=== PATIENT | female | born 1995 | race Caucasian/White ===

== ENCOUNTER 2019-01-28 06:25 | Emergency (ER) | payer SELFPAY ==
[2019-01-28 07:21] LABS: T.VAGINALIS (WET MOUNT) NO TRICHOMONAS SEEN
[2019-01-28 07:24] LABS: WBCS (WET MOUNT) NO WBCS SEEN; YEAST (WET MOUNT) YEAST SEEN
[2019-01-28] MEDS ORDERED: FLUCONAZOLE 100 MG TABLET PO ONE (07:26)
[2019-01-28] MEDS ORDERED: CEFTRIAXONE INJ 250 MG VIAL IM ONE (07:26)
[2019-01-28] MEDS ORDERED: AZITHROMYCIN 250 MG TABLET PO ONE (07:26)
[2019-01-28] MEDS ORDERED: LIDOCAINE 1% INJ-PF (10 MG/ML) 30 ML SDV ONE (07:43)
--- NOTE | 2019-01-28 07:45 | ER Document Report ---
ED General - General Chief Complaint: Vaginal Pain Stated Complaint: VAGINAL PAIN Time Seen by Provider: 01/28/19 07:02 Notes: Patient is a 24-year-old female presents to the emergency department with vaginal irritation and discharge. Patient voices that she has had generalized vaginal itching for the last couple of days. Patient's denying any dysuria. 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 Patient states she has used [id number] 1 day Monistat without relief. TRAVEL OUTSIDE OF THE [place] IN LAST 30 DAYS: No - Related Data Allergies/Adverse Reactions: No Known Allergies Allergy (Verified 01/28/19 07:54) Past Medical History - General Information source: Patient - Social History Smoking Status: Never Smoker Family History: Reviewed & Not Pertinent Patient has suicidal ideation: No Patient has homicidal ideation: No Review of Systems - Review of Systems Constitutional: denies: Fever EENT: No symptoms reported Cardiovascular: No symptoms reported Respiratory: No symptoms reported Gastrointestinal: No symptoms reported Genitourinary: See HPI Female Genitourinary: See HPI Musculoskeletal: No symptoms reported Skin: No symptoms reported Hematologic/Lymphatic: No symptoms reported Neurological/Psychological: No symptoms reported Physical Exam - Vital signs Vitals: Temp Pulse Resp BP Pulse Ox 98.3 F 89 16 131/69 H 97 01/28/19 06:31 01/28/19 06:31 01/28/19 06:31 01/28/19 06:31 01/28/19 06:31 - Notes Notes: GENERAL: Alert, interacts well. No acute distress. HEAD: Normocephalic, atraumatic. EYES: Pupils equal, round, and reactive to light. Extraocular movements intact. ENT: Oral mucosa moist, tongue midline. NECK: Full range of motion. Supple. Trachea midline. LUNGS: Clear to auscultation bilaterally, no wheezes, rales, or rhonchi. No respiratory distress. HEART: Regular rate and rhythm. No murmur ABDOMEN: Soft, non-tender. Non-distended. Bowel sounds present in all 4 quadrants. EXTREMITIES: Moves all 4 extremities spontaneously. No edema, normal radial and dorsalis pedis pulses bilaterally. No cyanosis. BACK: no cervical, thoracic, lumbar midline tenderness. No saddle anesthesia, normal distal neurovascular exam. NEUROLOGICAL: Alert and oriented x3. Normal speech. cranial nerves II through XII grossly intact PSYCH: Normal affect, normal mood. SKIN: Warm, dry, normal turgor. No rashes or lesions noted. Genitalia: Resident Care Technician Inderjit ROSE, thick white discharge noted in the cul-de-sac, no cervical motion tenderness noted, no adnexal tenderness noted bilaterally. Course - Re-evaluation Re-evalutation: 01/28/19 07:43 Laboratory 01/28/19 07:00 Trichomonas (Wet Prep) NO TRICHOMONAS SEEN Vaginal WBC NO WBCS SEEN Vaginal Yeast YEAST SEEN Patient's wet mount did show positive for yeast. No signs of trichomonas or bacterial vaginosis. Patient was prophylactically treated for gonorrhea and chlamydia as testing is pending. At this time will discharge with return precautions and follow-up recommendations. Verbal discharge instructions given a the bedside and opportunity for questions given. Medication warnings reviewed. Patient is in agreement with this plan and has verbalized understanding of return precautions and the need for primary care follow-up in the next 24-72 hours. This medical record was dictated with voice recognizing software. There may be grammatical, syntax errors that are unintended. - Vital Signs Vital signs: Temp Pulse Resp BP Pulse Ox 98.3 F 89 16 131/69 H 97 01/28/19 06:31 01/28/19 06:31 01/28/19 06:31 01/28/19 06:31 01/28/19 06:31 - Laboratory Laboratory results interpreted by me: 01/28/19 07:28 Urine Blood SMALL H Ur Leukocyte Esterase TRACE H Discharge - Discharge Clinical Impression: Yeast vaginitis Condition: Stable Disposition: HOME, SELF-CARE Instructions: Vaginal Yeast Infection ([facility]) Additional Instructions: You have been seen and treated in the emergency department for a yeast infection. Please take this prescription medication on January 31. Please also follow-up with your primary care provider in the next 24 to 48 hours. Please return to the emergency room for any further concerns. Prescriptions: Fluconazole [Diflucan] 150 mg PO ONCE PRN #1 tablet PRN Reason: Forms: Return to Work
[2019-01-28 07:53] LABS: APPEARANCE,URINE SLIGHTLY-CLOUDY; BILIRUBIN,URINE NEGATIVE (NEGATIVE); COLOR,URINE YELLOW; GLUCOSE, URINE NEGATIVE (NEGATIVE); KETONES,URINE NEGATIVE (NEGATIVE); LEUKOCYTE ESTERASE,URINE TRACE (NEGATIVE); NITRITE,URINE NEGATIVE (NEGATIVE); PROTEIN,URINE NEGATIVE (NEGATIVE); URINE SPECIFIC GRAVITY 1.017; UROBILINOGEN,URINE NEGATIVE mg/dL (<2.0)
[2019-01-28] MEDS ORDERED: LIDOCAINE 1% INJ-PF (10 MG/ML) 30 ML SDV INJ ONE (08:01)
[2019-01-28 08:14] VITALS: BP 127/82
[2019-01-28 08:53] LABS: CHLAM PCR NOT DETECTED (NOT DETECT)
== END 2019-01-28 08:15 | disposition home or self-care (01) ==
LOC: ER 06:25
DX: B37.3 Candidiasis of vulva and vagina (principal); R10.2 Pelvic and perineal pain; N89.8 Other specified noninflammatory disorders of vagina
CPT/HCPCS: 99283; 96372; 87086; 87210; 81001; 87491; 87591; J3490; J0696